=== PATIENT | male | born 1940 | race Caucasian/White ===

== ENCOUNTER 2021-02-19 18:08 | Emergency (ER) | payer MEDICARE, SELFPAY ==
--- NOTE | 2021-02-19 | ECG_ITS ---
Test Reason : CHEST PAIN Blood Pressure : / mmHG Vent. Rate : 052 BPM Atrial Rate : 052 BPM P-R Int : 190 ms QRS Dur : 094 ms QT Int : 464 ms P-R-T Axes : -21 -03 020 degrees QTc Int : 431 ms Sinus bradycardia Incomplete right bundle branch block Inferior infarct , age undetermined Abnormal ECG When compared with ECG of 22-NOV-2018 09:26, No significant changes seen Referred By: Generic ED Physician Electronically Signed By:CECILY ARROYO
--- NOTE | ~2021-02-19 | XR_ITS ---
EXAMINATION: XR RIBS, LEFT CLINICAL INFORMATION: Fall. Anterior pain. COMPARISON: None TECHNIQUE: Frontal view of chest. 4 oblique views of left ribs. FINDINGS: Linear atelectasis or scarring at the right lung base. No acute airways disease. No pleural effusion. No pneumothorax. Heart size is normal. Cardiac and mediastinal contours are normal. There is an acute fracture of the left anterior fifth and sixth rib. There are multiple healed old left anterior rib fractures. 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 XR/XR ribs LT min 3V w CXR1V IMPRESSION: Acute fractures of the left anterior fifth and sixth rib. No pneumothorax.
[2021-02-19 18:26] VITALS: BP 150/78; PULSE 60; RESP 16; TEMP 36.6; O2SAT 97; BMI 27.4
--- NOTE | 2021-02-19 19:47 | ED_ITS ---
HPI - Fall General Chief Complaint: Fall Stated Complaint: fall Time Seen by Provider: 02/19/21 19:25 Source: patient Limitations: no limitations History of Present Illness HPI Narrative: This is a 81-year-old male who last night had a fall after caring a heavy vacuum spool cleaner up the stairs, he lost his balance and fell backward landing on his left chest and sliding down a few steps on his left side. Bumped his head slightly, denies any headache or loss of consciousness, denies any neck pain. Apparently has pain to his left lateral chest, worse with movement or deep breath. He denies shortness of breath. He denies dizziness. Denies abdominal pain. He has a few minor injuries to his left leg but denies feeling like anything is broken there. He is not on any anticoagulants. Pain is moderately severe, sharp Related Data Previous Rx's Medication Instructions Recorded docusate sodium [Colace] 100 mg PO BID #20 cap 02/19/21 ibuprofen 400 mg PO Q6H PRN #30 tab 02/19/21 oxycodone-acetaminophen [Percocet] 1 tab PO Q4-6H PRN #20 tab 02/19/21 Allergies Allergy/AdvReac Type Severity Reaction Status Date / Time No Known Allergies Allergy Unverified 04/29/20 17:49 Review of Systems Review of Systems: Yes all other systems are reviewed and are negative Constitutional: Constitutional: Reports as per HPI, Denies fever(s) and Denies headache(s) Eyes: Eyes: Reports as per HPI and Reports no additional eye complaints ENT: Reports system reviewed and no additional complaints, except as documented, Reports as per HPI, Denies headache(s), Denies nasal congestion, Denies nasal discharge and Denies sore throat Cardiovascular: Cardiovascular: Reports as per HPI, Denies chest pain and Denies dyspnea Respiratory: Respiratory: Reports as per HPI, Denies cough and Denies dyspnea Gastrointestinal: Gastrointestinal: Reports as per HPI, Denies abdominal pain, Denies diarrhea and Denies vomiting Genitourinary: Genitourinary: Reports as per HPI, Denies hematuria, Denies dysuria and Denies urinary frequency Musculoskeletal: Musculoskeletal: Denies numbness Comments: Left lateral chest wall pain Integumentary/Breasts: Skin/Breast: Reports as per HPI and Denies rash Neurologic: Reports as per HPI, Denies headache(s), Denies focal weakness, Denies numbness and Denies Sensory deficit (Neuro) Psychiatric: Psychiatric: Reports no additional psychiatric complaints and Reports as per HPI Endocrine: Endocrine: Reports no additional endocrine complaints and Reports as per HPI Hematologic/Lymphatic: Hematologic/Lymphatic: Reports no additional hematologic/lymphatic complaints, Reports as per HPI and Reports other (No peripheral edema) [facility] Past Medical History Medical History (Updated 02/19/21 @ 19:54 by Ayush Miller MD) Depression Social History Social History Advance Directives: No Physical Exam Vital Signs: Vital Signs: Last Vital Signs Temp 98 F 02/19/21 18:26 Pulse 60 02/19/21 18:26 Resp 16 02/19/21 18:26 BP 150/78 H 02/19/21 18:26 Pulse Ox 97 02/19/21 18:26 Body Mass Index 27.4 Const: General: cooperative, no acute distress and alert Orientation/ consciousness: patient oriented x3 HENMT: Head: Yes normal to inspection Eyes: General: appearance normal, both eyes and all related structures Eyelids: Yes eyelids normal Conjunctivae: conjunctivae normal Pupils: Equal, round and reactive pupils present Neck: Neck: Yes normal visual inspection and Yes supple Chest: Chest palpation & inspection: normal inspection of the chest and abnormal palpation of chest wall (Tender left anterolateral chest, just below the axilla, no ecchymosis) Resp: Effort & Inspection: normal respiratory effort Auscultation: clear to auscultation bilaterally Cardio: Rate: regular rate Rhythm: regular rhythm Heart sounds: S1 normal heart sound present, S2 normal heart sound present, no gallops, no murmurs and no rubs GI: Palpation (GI): Soft to palpation, nontender and Other GI palpation findings present (Non-distended) Auscultation: normal bowel sounds Skin: General skin exam: no rashes or lesions noted Neuro: General: patient oriented x3, no focal motor deficits and CN's II-XI intact bilaterally Cranial nerves: Yes Equal, round and reactive pupils present Cognition (Neuro): normal cognition Motor exam (neuro): 5/5 motor strength present throughout Sensory Exam: No Sensory deficit (Neuro) Extrem: General: Yes normal to inspection and Yes no pedal edema Psych: Appearance: grossly normal Affect: normal affect MDM - Fall MDM Narrative Medical decision making narrative: Patient with a fall yesterday, has to left rib fractures. Patient appears fairly well clinically and is well appearing for his age. The patient is being prescribed Percocet 5/325 as well as ibuprofen and Colace, the latter to help prevent constipation. He is encouraged to drink plenty of water and eat fruits and vegetables to help prevent constipation. He has been set up with an incentive spirometer by respiratory and was instructed on use of bed to help prevent pneumonia. He is advised to return for any worsened symptoms such as shortness of breath, cough or fever. Imaging Data Chest x-ray: Radiologist's impression: FINDINGS: Linear atelectasis or scarring at the right lung base. No acute airways disease. No pleural effusion. No pneumothorax. Heart size is normal. Cardiac and mediastinal contours are normal. There is an acute fracture of the left anterior fifth and sixth rib. There are multiple healed old left anterior rib fractures. 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 XR/XR ribs LT min 3V w CXR1V IMPRESSION: Acute fractures of the left anterior fifth and sixth rib. No pneumothorax. ECG Data Attestation: I personally reviewed and interpreted this ECG as follows: ECG interpretation date: 02/19/21 ECG interpretation time: 19:54 Interpretation: Sinus bradycardia with a rate of 52. No ST elevation or depression. No ectopy. Q-waves in leads 3 and AVF. Incomplete right bundle- branch block. Discharge Plan Discharge Clinical Impression: Left rib fracture Patient Disposition: Home, Self-Care Instructions: Rib Fracture (ED) Additional Instructions: Use the incentive spirometer as instructed by respiratory. Use the pain medicine and stool softener as prescribed. Return for any new or worsened symptoms such as shortness of breath, fever, cough, dizziness. Follow-up with primary care physician in 2-3 days. Drink plenty of water and eat lots of fruits and vegetables to help keep her stool soft, prevent constipation Prescriptions: New oxycodone-acetaminophen [Percocet] 5-325 mg tablet 1 tab PO Q4-6H PRN (Reason: pain) Qty: 20 RF: 0 docusate sodium [Colace] 100 mg capsule 100 mg PO BID Qty: 20 RF: 0 ibuprofen 400 mg tablet 400 mg PO Q6H PRN (Reason: pain) Qty: 30 RF: 0
[2021-02-19] MEDS: Acetaminophen 325 MG TABLET 650 MG PO (20:04)
[2021-02-19] MEDS: oxyCODONE HCl Immed Release 5 MG TABLET PO (20:05)
== END 2021-02-19 20:19 | disposition home or self-care (01) ==
PROVIDERS: Emergency Provider Emergency Medicine; PCP Internal Medicine
DX: S22.32XA Fracture of one rib, left side, initial encounter for closed fracture (principal); W10.9XXA Fall (on) (from) unspecified stairs and steps, initial encounter; Y93.89 Activity, other specified; Y92.9 Unspecified place or not applicable; Y99.9 Unspecified external cause status
CPT/HCPCS: 71101; 93005; 99284